=== PATIENT | female | born 1990 | race Caucasian/White ===

== ENCOUNTER 2019-02-23 14:35 | Emergency (ER) | payer SELFPAY ==
[2019-02-23] MEDS ORDERED: LIDOCAINE HCL 1% 20 ML VIAL ONE (15:08)
== END 2019-02-23 17:06 | disposition home or self-care (01) ==
LOC: EDH 14:35
DX: S51.812A Laceration without foreign body of left forearm, initial encounter (principal); Z72.0 Tobacco use; X58.XXXA Exposure to other specified factors, initial encounter; Y93.89 Activity, other specified; Y92.89 Other specified places as the place of occurrence of the external cause; Y99.8 Other external cause status
CPT/HCPCS: 12032; 12042